=== PATIENT | female | born 1945 | race Caucasian/White ===

== ENCOUNTER 2018-11-01 14:34 | Outpatient (CLI) | payer MEDICARE, BC ==
[~2018-11-01 14:34] MED LIST: Gadobenate Dimeglumine 529 MG/1 ML (20ML VIAL) ONE
--- NOTE | 2018-11-01 16:38 | MRI ---
MRI Lumbar Spine W WO Con History: [M 55.16 lumbar radiculopathy] Comparison: Lumbar spine MRI January 14, 2017 Findings: Aortic contour is nonaneurysmal. No retroperitoneal adenopathy. Moderate levoscoliosis lumbar spine. No marrow infiltrative process. Multilevel Modic type II endplat e changes. Laminectomy changes L3-L4. Levels are as follows: L1/L2: Circumferential disc osteophyte complex, greatest in the right lateral recess and subforaminal zone. There is moderate to severe right neural foraminal narrowing. Moderate right and mild left facet arthrosis. There is some mass effect upon the thecal sac along the right lateral margin. L2/L3: Circumferential disc bulge and associated osteophyte. Moderate facet arthropathy. Moderate to severe bilateral neural foraminal narrowing. No significant spinal canal narrowing. L3/L4: Moderate disc desiccation. Circumferential disc osteophyte complex greatest in the subforamina l zones. Moderate to severe right and moderate left neural foraminal narrowing with abutment of the right exiting and traversing nerve roots. Spinal canal measures approximately 8 mm. L4/L5: Partial osseous bridging of the disc space. Broad-based posterior disc osteophyte complex grea test in the subforaminal zones. Moderate to severe bilateral neural foraminal narrowing. Moderate facet arthrosis. L5/S1: Disc desiccation and height loss. Degenerative anterolisthesis, 1 mm, due to facet arthropathy . Moderate to severe left neural foraminal narrowing with abutment the exiting and traversing nerve roots. There is a enhancing epidural fibrosis, postsurgical in nature at L3-L4, although the amount of enhan cement has decreased indicating scar evolution. Impression: Multilevel spondylosis as described with neural foraminal and spinal canal narrowing.
--- NOTE | 2018-11-01 16:44 | RAD ---
XR Cervical Spine 4 View Min History: [Neck stiffness and pain] Comparison: None. Findings: Moderate degenerative disc space height loss at C4-5 C5-6 and C6-7. Multiple bridging anter ior osteophytes. No acute fracture or malalignment. No significant translation with flexion or extension. Degenerative grade 1 C5 over C6 anterolisthesis. Impression: Moderate spondylosis as described. No fracture nor translation with flexion or extension.
--- NOTE | 2018-11-01 16:53 | RAD ---
FOUR VIEWS LUMBOSACRAL SPINE: Comparison: 10-09-14 History: Low back pain since September 2017. FINDINGS: AP, lateral, flexion and extension views of the lumbosacral spine were performed. There is moderate s table scoliotic curvature of the lumbosacral spine. The vertebral bodies demonstrate normal heights w ithout acute fracture or subluxation. The intervertebral discs are narrowed and moderate osteophytes are seen along the right aspect of the lumbar spine. Severe posterior facet arthrosis is seen in the lower lumbosacral spine. Alignment is unchanged with flexion and extension. IMPRESSION: Degenerative changes of the lumbar spine with unchanged alignment with bending. POS: TUSHAR
== END 2018-11-01 14:35 | disposition home or self-care (01) ==
LOC: BICMRI 14:34
PROVIDERS: ATTEND Physician Assistant Surgical
DX: M54.2 Cervicalgia (principal); M47.26 Other spondylosis with radiculopathy, lumbar region; R26.89 Other abnormalities of gait and mobility; M47.816 Spondylosis without myelopathy or radiculopathy, lumbar region; M48.061 Spinal stenosis, lumbar region without neurogenic claudication; M48.07 Spinal stenosis, lumbosacral region
CPT/HCPCS: 72050; 72110; 72158; 82565; A9577

== ENCOUNTER 2019-02-07 15:11 | Outpatient (CLI) | payer MEDICARE, BC ==
--- NOTE | 2019-02-07 15:57 | ULT ---
Thyroid ultrasound: 02/07/2019 Comparison none HISTORY: Thyroid nodule TECHNIQUE: Multiplanar grayscale sonographic imaging of the thyroid gland obtained. FINDINGS: Thyroid isthmus measures 4 mm in AP dimension. Right lobe measures 4.3 x 1.7 x 1.4 cm and left lobe measures 3.5 x 1.7 x 1.3 cm. Incidental note is made of a tiny nodule within the inferior aspect of the right lobe of the thyroid gland measuring 3 x 4 mm of doubtful clinical significance. No additional thyroid nodule is noted. IMPRESSION: Grossly unremarkable thyroid ultrasound with 3-4 mm right thyroid nodule of doubtful clin ical significance.
== END 2019-02-07 15:12 | disposition home or self-care (01) ==
LOC: BICULT 15:11
PROVIDERS: ATTEND Internal Medicine Cardiovascular Disease
DX: E04.1 Nontoxic single thyroid nodule (principal)
CPT/HCPCS: 76536

== ENCOUNTER 2020-05-24 06:48 | Outpatient (CLI) | payer MEDICARE, BC ==
[2020-05-24 14:10] LABS: Hemoglobin 12.2 g/dL (12.0-16.0); Mean Corpuscular HGB CONC 32.2 G/DL (32.0-36.0); Mean Corpuscular Volume 93.1 fl (80.0-100.0); Mean Platelet Volume 9.2 fl (7.4-10.4); Platelet Count 307 10x3/uL (130-400); RBC Distribution Width 13.1 % (11.5-14.5); Red Blood Cell (RBC) Count 4.07 10x6/uL (3.90-5.20); White Blood Cell (WBC) Count 7.1 10x3/uL (4.5-11.0)
[2020-05-24 14:25] LABS: Anion Gap 14 mmol/L (10-20); BUN (Urea Nitrogen) 14 mg/dL (9.8-20.1); Calc. Creatinine Clearance 0 mL/min (70-130); Calcium 9.7 mg/dL (7.8-10.44); Carbon Dioxide 24 mmol/L (23-31); Chloride 104 mmol/L (98-107); Glucose 95 mg/dL (83-110); Potassium 4.6 mmol/L (3.5-5.1); Sodium 137 mmol/L (136-145)
[2020-05-24 14:30] LABS: INR-International Normal Ratio 1.2; PTT 34.6 sec (22.0-33.0); Prothrombin Time 12.5 sec (9.5-12.1)
[2020-05-25 03:06] LABS: SARS-CoV-2 MS2 Positive; SARS-CoV-2 N Gene Negative; SARS-CoV-2 S Gene Negative; SARS-CoV-2 by NAA Not Detected (NotDetected); SARS-CoV-2 orf1ab Negative
--- NOTE | 2020-05-25 07:20 | EKG ---
Test Reason : Blood Pressure : / mmHG Vent. Rate : 063 BPM Atrial Rate : 063 BPM P-R Int : 180 ms QRS Dur : 090 ms QT Int : 414 ms P-R-T Axes : 066 004 042 degrees QTc Int : 423 ms Normal sinus rhythm Poor anterior R wave progression No previous ECGs available Confirmed by DR. Gaby POLO ([id number]) on 05/25/2020 7:19:48 AM Referred By: Xena BARRAZA Confirmed By:DR. Gaby POLO
== END 2020-05-24 06:49 | disposition home or self-care (01) ==
LOC: LABBT 06:48
PROVIDERS: ATTEND Surgery
DX: Z01.818 Encounter for other preprocedural examination (principal); M54.16 Radiculopathy, lumbar region; M48.062 Spinal stenosis, lumbar region with neurogenic claudication; Z20.828 Contact with and (suspected) exposure to other viral communicable diseases
CPT/HCPCS: 80048; 85027; 85610; 85730; 93005; U0003; 87635; 93010

== ENCOUNTER 2020-11-05 12:09 | Outpatient (CLI) | payer MEDICARE, BC | END 2020-11-05 12:10 | disposition home or self-care (01) | LOC: BICMAMMO 12:09 | PROVIDERS: ATTEND Internal Medicine | DX: Z12.31 Encounter for screening mammogram for malignant neoplasm of breast (principal) | CPT/HCPCS: 77063; 77067 ==

== ENCOUNTER 2021-11-06 13:18 | Outpatient (CLI) | payer MEDICARE, BC | END 2021-11-06 13:19 | disposition home or self-care (01) | LOC: BICMAMMO 13:18 | PROVIDERS: ATTEND Internal Medicine | DX: Z12.31 Encounter for screening mammogram for malignant neoplasm of breast (principal) | CPT/HCPCS: 77063; 77067 ==

== ENCOUNTER 2022-12-30 | Emergency (ER) | payer MEDICARE, BC ==
[2022-12-30] MEDS ORDERED: Nitroglycerin 0.4 MG TAB 1 EACH ONE (00:26)
[2022-12-30 00:39] LABS: #Eosinphils 0.2 thou/uL (0.0-0.7); #Monocytes 0.8 thou/uL (0.11-0.59); #Neutrophils 7.4 thou/uL (1.40-6.50); %Basophils 0.3 % (0.0-1.0); %Eosinophils 1.3 % (0.0-10.0); %Lymphocytes 31.7 % (21.0-51.0); %Monocytes 6.5 % (0.0-10.0); %Neutrophils 59.9 % (42.0-75.0); Hemoglobin 13.9 g/dL (12.0-16.0); Mean Corpuscular HGB CONC 33.2 g/dL (32.0-36.0); Mean Corpuscular Volume 93.5 fl (78.0-98.0); Mean Platelet Volume 9.3 fL (7.4-10.4); Platelet Count 244 10x3/uL (130-400); RBC Distribution Width 12.1 % (11.5-14.5); Red Blood Cell (RBC) Count 4.48 mill/uL (4.20-5.40); White Blood Cell (WBC) Count 12.4 10x3/uL (4.8-10.8)
[2022-12-30 01:03] LABS: ALT (SGPT) 21 U/L (8-55); AST (SGOT) 22 U/L (5-34); Albumin 4.3 g/dL (3.4-4.8); Alkaline Phosphatase 93 U/L (40-110); Anion Gap 16 mmol/L (10-20); BUN (Urea Nitrogen) 22 mg/dL (9.8-20.1); Bilirubin, Total 0.4 mg/dL (0.2-1.2); Calc. Creatinine Clearance 0 mL/min (70-130); Carbon Dioxide 25 mmol/L (23-31); Chloride 103 mmol/L (98-107); Estimated GFR 52; Globulin 2.9 g/dL (2.4-3.5); Glucose 102 mg/dL (83-110); Lipase 23 U/L (8-78); Protein, Total 7.2 g/dL (5.8-8.1); Sodium 140 mmol/L (136-145)
== END 2022-12-30 05:05 | disposition home or self-care (01) ==
LOC: ERS
DX: R07.9 Chest pain, unspecified (principal); D72.829 Elevated white blood cell count, unspecified; I10 Essential (primary) hypertension; Z79.899 Other long term (current) drug therapy
CPT/HCPCS: 36415; 71045; 80053; 83690; 84484; 85025; 93005

== ENCOUNTER 2023-01-23 12:12 | Outpatient (CLI) | payer MEDICARE, BC | END 2023-01-23 12:13 | disposition home or self-care (01) | LOC: BICMRI 12:12 | PROVIDERS: ATTEND Surgery | DX: M47.26 Other spondylosis with radiculopathy, lumbar region (principal); M48.061 Spinal stenosis, lumbar region without neurogenic claudication; M48.07 Spinal stenosis, lumbosacral region; M89.38 Hypertrophy of bone, other site; M41.9 Scoliosis, unspecified | CPT/HCPCS: 72148 ==

== ENCOUNTER 2023-01-26 15:45 | Outpatient (CLI) | payer MEDICARE, BC | END 2023-01-26 15:46 | disposition home or self-care (01) | LOC: RAD 15:45 | PROVIDERS: ATTEND Surgery | DX: M47.26 Other spondylosis with radiculopathy, lumbar region (principal); Z98.890 Other specified postprocedural states | CPT/HCPCS: 72120 ==

== ENCOUNTER 2023-02-06 14:41 | Outpatient (CLI) | payer MEDICARE, BC ==
[~2023-02-06 14:41] MED LIST changes: -Gadobenate Dimeglumine 529 MG/1 ML (20ML VIAL) ONE; +Magnevist 469MG/ML 20 ML VIAL ONE
== END 2023-02-06 14:42 | disposition home or self-care (01) ==
LOC: BICMRI 14:41
PROVIDERS: ATTEND Psychiatry & Neurology Neurology
DX: G24.5 Blepharospasm (principal); I67.89 Other cerebrovascular disease; R90.89 Other abnormal findings on diagnostic imaging of central nervous system
CPT/HCPCS: 70553; A9579

== ENCOUNTER 2025-03-08 13:04 | Outpatient (CLI) | payer MEDICARE | END 2025-03-08 13:05 | disposition home or self-care (01) | LOC: BICMAMMO 13:04 | PROVIDERS: ATTEND Internal Medicine | DX: Z12.31 Encounter for screening mammogram for malignant neoplasm of breast (principal); Z78.0 Asymptomatic menopausal state; M85.89 Other specified disorders of bone density and structure, multiple sites | CPT/HCPCS: 77063; 77067; 77080 ==

== ENCOUNTER 2025-04-26 18:41 | Inpatient (IN) | payer MEDICARE ==
[2025-04-26] MEDS ORDERED: KETAMINE 100 MG/ML (5ML VIAL) ONE (20:42)
[2025-04-26 20:50] LABS: #Basophils 0.04 10x3/uL (0.0-0.2); #Eosinophils 0.03 10x3/uL (0.0-0.7); #Monocytes 0.55 10x3/uL (0.11-0.59); #Neutrophils 9.01 10x3/uL (1.40-6.50); %Basophils 0.4 % (0.0-1.0); %Eosinophils 0.3 % (0.0-10.0); %Lymphocytes 9.0 % (21.0-51.0); %Monocytes 5.2 % (0.0-10.0); %Neutrophils 84.7 % (42.0-75.0); Hematocrit 35.1 % (36.0-47.0); Hemoglobin 11.3 g/dL (12.0-16.0); Mean Corpuscular Hemoglobin 30.6 pg (27.0-31.0); Mean Corpuscular Volume 95.1 fL (78.0-98.0); Platelet Count 153 10x3/uL (130-400); Red Blood Cell (RBC) Count 3.69 mill/uL (4.20-5.40); White Blood Cell (WBC) Count 10.63 10x3/uL (4.8-10.8)
[2025-04-26] MEDS ORDERED: Ketamine In 0.9 % NaCl 50 MG/5 ML SYRINGE ONE (20:51)
[2025-04-26 21:05] LABS: ALT (SGPT) 18 U/L (Less than 34); AST (SGOT) 40 U/L (11-34); Albumin 3.4 g/dL (3.1-4.5); Alkaline Phosphatase 76 U/L (40-110); Anion Gap 13 mmol/L (10-20); BUN (Urea Nitrogen) 18 mg/dL (9.8-20.1); Bilirubin, Total 0.4 mg/dL (0.3-1.2); Calc. Creatinine Clearance 0 mL/min (70-130); Calcium 9.0 mg/dL (7.8-10.44); Carbon Dioxide 19 mmol/L (23-31); Chloride 110 mmol/L (98-107); Globulin 2.7 g/dL (2.4-3.5); Glucose 133 mg/dL (83-110); Potassium 3.9 mmol/L (3.5-5.1); Sodium 138 mmol/L (136-145)
[2025-04-26 21:16] LABS: INR-International Normal Ratio 1.1; Prothrombin Time 14.2 sec (12.0-14.7)
[2025-04-26 21:17] LABS: PTT 27.3 sec (22.9-36.1)
[2025-04-26] MEDS ORDERED: Glucagon 1 MG/ML KIT IM PRN (21:28)
[2025-04-26] MEDS ORDERED: Dextrose 50% Abboject 50 ML SYRINGE SLOW IVP PRN (21:28)
[2025-04-26] MEDS ORDERED: Ondansetron PF 4 MG/2 ML Vial IVP PRN (21:28)
[2025-04-26] MEDS: Acetaminophen 325 MG TAB PO PRN (23:26)
[2025-04-26] MEDS: Methocarbamol 500 MG TAB PO PRN (23:27)
[2025-04-26] MEDS: hydrALAZINE 20 MG/ML VIAL SLOW IVP PRN (23:27)
[2025-04-27 05:08] LABS: #Basophils Less than 0.03 10x3/uL (0.0-0.2); #Eosinophils Less than 0.03 10x3/uL (0.0-0.7); #Monocytes 0.47 10x3/uL (0.11-0.59); #Neutrophils 8.13 10x3/uL (1.40-6.50); %Basophils 0.1 % (0.0-1.0); %Eosinophils 0.0 % (0.0-10.0); %Lymphocytes 10.5 % (21.0-51.0); %Monocytes 4.9 % (0.0-10.0); %Neutrophils 84.1 % (42.0-75.0); Hematocrit 31.4 % (36.0-47.0); Hemoglobin 10.4 g/dL (12.0-16.0); Mean Corpuscular Hemoglobin 30.6 pg (27.0-31.0); Mean Corpuscular Volume 92.4 fL (78.0-98.0); Platelet Count 159 10x3/uL (130-400); Red Blood Cell (RBC) Count 3.40 mill/uL (4.20-5.40); White Blood Cell (WBC) Count 9.66 10x3/uL (4.8-10.8)
[2025-04-27 05:34] LABS: Anion Gap 12 mmol/L (10-20); BUN (Urea Nitrogen) 19 mg/dL (9.8-20.1); Calc. Creatinine Clearance 0 mL/min (70-130); Calcium 8.6 mg/dL (7.8-10.44); Carbon Dioxide 21 mmol/L (23-31); Chloride 108 mmol/L (98-107); Glucose 135 mg/dL (83-110); Potassium 4.2 mmol/L (3.5-5.1); Sodium 137 mmol/L (136-145)
[2025-04-27] MEDS: Senokot S 8.6-50 MG TAB PO SCH (09:00)
[2025-04-27] MEDS: Losartan 25 MG TAB PO SCH (09:03)
[2025-04-27] MEDS ORDERED: Ondansetron PF 4 MG/2 ML Vial ONE (11:59)
[2025-04-27] MEDS ORDERED: CEFAZOLIN 2 GM VIAL ONE (12:16)
[2025-04-27] MEDS ORDERED: PROPOFOL 200 MG/20 ML VIAL ONE (12:41)
[2025-04-27] MEDS ORDERED: fentaNYL PF 100 MCG/2 ML SYRINGE ONE (15:18)
[2025-04-27] MEDS ORDERED: HYDROcodone/Acetaminophen 5/325 mg Tablet PO PRN (17:41)
[2025-04-27] MEDS: Pantoprazole 40 MG DR.TAB PO SCH (22:09)
[2025-04-27] MEDS: Atenolol 50 MG TAB PO SCH (22:10)
[2025-04-27] MEDS: HYDROcodone/Acetaminophen 5/325 mg Tablet PO PRN (22:31)
[2025-04-28 04:04] VITALS: BMI 29.6
[2025-04-28 07:41] LABS: #Basophils Less than 0.03 10x3/uL (0.0-0.2); #Eosinophils Less than 0.03 10x3/uL (0.0-0.7); #Monocytes 0.71 10x3/uL (0.11-0.59); #Neutrophils 6.23 10x3/uL (1.40-6.50); %Basophils 0.1 % (0.0-1.0); %Eosinophils 0.2 % (0.0-10.0); %Lymphocytes 17.3 % (21.0-51.0); %Monocytes 8.4 % (0.0-10.0); %Neutrophils 73.8 % (42.0-75.0); Hematocrit 29.9 % (36.0-47.0); Hemoglobin 9.5 g/dL (12.0-16.0); Mean Corpuscular Hemoglobin 30.5 pg (27.0-31.0); Mean Corpuscular Volume 96.1 fL (78.0-98.0); Platelet Count 138 10x3/uL (130-400); Red Blood Cell (RBC) Count 3.11 mill/uL (4.20-5.40); White Blood Cell (WBC) Count 8.45 10x3/uL (4.8-10.8)
[2025-04-28 08:01] LABS: Anion Gap 11 mmol/L (10-20); BUN (Urea Nitrogen) 16 mg/dL (9.8-20.1); Calc. Creatinine Clearance 67 mL/min (70-130); Calcium 8.1 mg/dL (7.8-10.44); Carbon Dioxide 21 mmol/L (23-31); Chloride 112 mmol/L (98-107); Glucose 114 mg/dL (83-110); Potassium 4.0 mmol/L (3.5-5.1); Sodium 140 mmol/L (136-145)
[2025-04-28] MEDS: Aspirin 81 mg Enteric Coated Tablet PO SCH (20:50)
[2025-04-28] MEDS: FLU (Fluad Triv) 25-26 (65UP)PF 45 MCG/0.5 ML Syringe IM ONE (23:11)
[2025-04-29 05:34] LABS: #Basophils Less than 0.03 10x3/uL (0.0-0.2); #Eosinophils 0.08 10x3/uL (0.0-0.7); #Monocytes 0.66 10x3/uL (0.11-0.59); #Neutrophils 4.52 10x3/uL (1.40-6.50); %Basophils 0.3 % (0.0-1.0); %Eosinophils 1.2 % (0.0-10.0); %Lymphocytes 23.7 % (21.0-51.0); %Monocytes 9.5 % (0.0-10.0); %Neutrophils 65.0 % (42.0-75.0); Hematocrit 27.8 % (36.0-47.0); Hemoglobin 8.9 g/dL (12.0-16.0); Mean Corpuscular Hemoglobin 30.3 pg (27.0-31.0); Mean Corpuscular Volume 94.6 fL (78.0-98.0); Platelet Count 129 10x3/uL (130-400); Red Blood Cell (RBC) Count 2.94 mill/uL (4.20-5.40); White Blood Cell (WBC) Count 6.95 10x3/uL (4.8-10.8)
[2025-04-29 05:55] LABS: Anion Gap 6 mmol/L (10-20); BUN (Urea Nitrogen) 16 mg/dL (9.8-20.1); Calc. Creatinine Clearance 83 mL/min (70-130); Calcium 8.0 mg/dL (7.8-10.44); Carbon Dioxide 24 mmol/L (23-31); Chloride 112 mmol/L (98-107); Glucose 117 mg/dL (83-110); Potassium 4.2 mmol/L (3.5-5.1); Sodium 138 mmol/L (136-145)
[2025-04-30 06:52] LABS: #Basophils 0.03 10x3/uL (0.0-0.2); #Eosinophils 0.14 10x3/uL (0.0-0.7); #Monocytes 0.54 10x3/uL (0.11-0.59); #Neutrophils 3.97 10x3/uL (1.40-6.50); %Basophils 0.5 % (0.0-1.0); %Eosinophils 2.3 % (0.0-10.0); %Lymphocytes 24.6 % (21.0-51.0); %Monocytes 8.7 % (0.0-10.0); %Neutrophils 63.7 % (42.0-75.0); Hematocrit 30.1 % (36.0-47.0); Hemoglobin 9.7 g/dL (12.0-16.0); Mean Corpuscular Hemoglobin 30.0 pg (27.0-31.0); Mean Corpuscular Volume 93.2 fL (78.0-98.0); Platelet Count 142 10x3/uL (130-400); Red Blood Cell (RBC) Count 3.23 mill/uL (4.20-5.40); White Blood Cell (WBC) Count 6.22 10x3/uL (4.8-10.8)
[2025-04-30 07:03] LABS: Anion Gap 11 mmol/L (10-20); BUN (Urea Nitrogen) 15 mg/dL (9.8-20.1); Calc. Creatinine Clearance 79 mL/min (70-130); Calcium 8.3 mg/dL (7.8-10.44); Carbon Dioxide 24 mmol/L (23-31); Chloride 112 mmol/L (98-107); Glucose 105 mg/dL (83-110); Potassium 4.3 mmol/L (3.5-5.1); Sodium 143 mmol/L (136-145)
[2025-04-30] MEDS: Lactulose 20 GM (30 mL) UDCUP PO SCH (10:37)
[2025-05-01 09:11] LABS: #Basophils 0.03 10x3/uL (0.0-0.2); #Eosinophils 0.14 10x3/uL (0.0-0.7); #Monocytes 0.50 10x3/uL (0.11-0.59); #Neutrophils 5.30 10x3/uL (1.40-6.50); %Basophils 0.4 % (0.0-1.0); %Eosinophils 2.0 % (0.0-10.0); %Lymphocytes 14.6 % (21.0-51.0); %Monocytes 7.1 % (0.0-10.0); %Neutrophils 75.8 % (42.0-75.0); Hematocrit 31.7 % (36.0-47.0); Hemoglobin 10.7 g/dL (12.0-16.0); Mean Corpuscular Hemoglobin 30.9 pg (27.0-31.0); Mean Corpuscular Volume 91.6 fL (78.0-98.0); Platelet Count 195 10x3/uL (130-400); Red Blood Cell (RBC) Count 3.46 mill/uL (4.20-5.40); White Blood Cell (WBC) Count 7.00 10x3/uL (4.8-10.8)
[2025-05-01 09:35] LABS: Anion Gap 13 mmol/L (10-20); BUN (Urea Nitrogen) 14 mg/dL (9.8-20.1); Calc. Creatinine Clearance 76 mL/min (70-130); Calcium 8.6 mg/dL (7.8-10.44); Carbon Dioxide 21 mmol/L (23-31); Chloride 108 mmol/L (98-107); Glucose 114 mg/dL (83-110); Potassium 4.1 mmol/L (3.5-5.1); Sodium 138 mmol/L (136-145)
[2025-05-02 12:00] VITALS: TEMP 97.6
[2025-05-02 12:04] VITALS: BP 130/65
== END 2025-05-02 14:17 | DRG 511 ==
LOC: ERS 18:41 → SURG B 21:37
PROVIDERS: ADMIT Colon & Rectal Surgery; ATTEND Colon & Rectal Surgery
PROC: 0PSH04Z Reposition Right Radius with Internal Fixation Device, Open Approach (ICD-10-PCS; principal; 2025-04-27)
PROC: 0XQN0ZZ Repair Right Index Finger, Open Approach (ICD-10-PCS; 2025-04-27)
PROC: 0PSJ04Z Reposition Left Radius with Internal Fixation Device, Open Approach (ICD-10-PCS; 2025-04-27)
DX: S52.591A Other fractures of lower end of right radius, initial encounter for closed fracture (principal); S52.512A Displaced fracture of left radial styloid process, initial encounter for closed fracture; S61.210A Laceration without foreign body of right index finger without damage to nail, initial encounter; G47.00 Insomnia, unspecified; K59.00 Constipation, unspecified; Z79.899 Other long term (current) drug therapy
CPT/HCPCS: 12002; 25605; 36415; 71045; 80048; 80053; 85025; 85610; 85730; 86850; 86900; 86901; 93005; 96374; 96376; 99152; 99153; C1713; G0390; J0360; J1100; J2270; J2405; J2704; J3010; J3490; J7120